=== PATIENT | female | born 1950 | race Caucasian/White ===

== ENCOUNTER 2016-10-10 06:38 | Emergency (ER) | payer OTHER ==
--- NOTE | 2016-10-10 06:51 | PDOC ---
History of Present Illness - History of Present Illness Initial Comments: 10/10/16 06:57 This 66-year-old woman with a history of diabetes mellitus, presents with a history of progressive pain in her left foot. 3 days ago, the patient walked extensively throughout [place] wearing a new pair of shoes. The following morning, the patient noted swelling and pain in the left foot. These symptoms progressed over the next 24 hours with redness and swelling especially severe at the base of the big toe. Patient has no previous history of gout. No history of diabetic foot ulcers. No history of gout in her family. No history of fever or chills. No recent change in diet or increase in alcohol consumption <Heather Boyd - Last Filed: 10/10/16 07:16> <Yemi Bernal - Last Filed: 10/10/16 09:24> - General Chief Complaint: Pain Stated Complaint: PAIN LEFT FOOT Time Seen by Provider: 10/10/16 06:40 Past History - Immunization History Immunization Up to Date: Yes - Psycho/Social/Smoking Cessation Hx Suicidal Ideation: No Smoking History: Former smoker Have you smoked in the past 12 months: No Hx Alcohol Use: No Drug/Substance Use Hx: No <Heather Boyd - Last Filed: 10/10/16 07:16> <Yemi Bernal - Last Filed: 10/10/16 09:24> - Past Medical History Allergies/Adverse Reactions: Allergies Allergy/AdvReac Type Severity Reaction Status Date / Time No Known Allergies Allergy Verified 10/10/16 06:39 Home Medications: Ambulatory Orders Ketorolac Tromethamine [Toradol] 10 mg PO Q6H #12 tablet 10/10/16 Metformin HCl [Metformin HCl ER] 0 mg PO DAILY 10/10/16 Victoza - 10/10/16 Review of Systems - Review of Systems Able to Perform ROS?: Yes Comments:: 12 point review of systems is negative except for what is noted in the history of present illness <Heather Boyd - Last Filed: 10/10/16 07:16> *Physical Exam - Physical Exam Comments: GENERAL: HEAD: Normal with no signs of trauma. EYES: PERRLA, EOMI, sclera anicteric, conjunctiva clear. ENT: Ears normal, nares patent, oropharynx clear without exudates. Dry mucous membranes. NECK: Normal range of motion, supple without lymphadenopathy, JVD, or masses. LUNGS: Breath sounds equal, clear to auscultation bilaterally. No wheezes, and no crackles. HEART:Regular rate and rhythm, normal S1 and S2 without murmur, rub or gallop. ABDOMEN:.normal bowel sounds No guarding,tenderness or rebound.No masses No distention. EXTREMITIES: Left footmarked tenderness/moderate erythema/moderate edema at the base of the great toe and at first MTP joint no ulcers/lacerations or other skin breakage Remainder of the extremity exam is normal NEUROLOGICAL: Cranial nerves II through XII grossly intact. Normal speech. No focal neurological deficits. MUSCULOSKELETAL: Back non-tender to palpation, no CVA tenderness SKIN: Warm, Dry, normal turgor, no rashes or lesions noted. <Heather Boyd - Last Filed: 10/10/16 07:16> - Vital Signs Last Vital Signs Temp Pulse Resp BP Pulse Ox 98.1 F 85 18 152/82 100 10/10/16 06:43 10/10/16 06:43 10/10/16 06:43 10/10/16 06:43 10/10/16 06:43 <Yemi Bernal - Last Filed: 10/10/16 09:24> ED Treatment Course - ADDITIONAL ORDERS Additional order review: Laboratory Results 10/10/16 10/10/16 07:58 07:58 Uric Acid 7.3 H Calcium 10.0 <Yemi Bernal - Last Filed: 10/10/16 09:24> Progress Note - Progress Note Progress Note: This 66-year-old woman presents with a few day history of progressive inflammation and pain in the great toe of her left foot. Although she has had overuse in recent days (extensive walking 3 days ago), clinical presentation/ exam is most consistent with acute gout. Left foot x-ray will be performed to rule out occult fracture. Case signed out to Dr. Young at end of shift <Heather Boyd - Last Filed: 10/10/16 07:16> Medical Decision Making - Medical Decision Making 10/10/16 09:18 Uric Acid is 7.3, elevated. Calcium is 10.0. X-ray is negative The patient is being treated now by her primary physician and snailer for elevated calcium. She has an appointment for later in the week with both physicians. She had stopped her triamterene 2 weeks ago upon the order of her snailer. She is on no diuretics now. She denies alcohol. Recommend short course of anti-inflammatories to quell the attack of gout. She will follow-up with her snailer for further instructions. She is improved and ambulatory following administration of Toradol, discharged in less discomfort in the company of her to follow-up later in the week as <Yemi Bernal - Last Filed: 10/10/16 09:24> *DC/Admit/Observation/Transfer <Heather Boyd - Last Filed: 10/10/16 07:16> - Discharge Dispostion Admit: No <Yemi Bernal - Last Filed: 10/10/16 09:24> Diagnosis at time of Disposition: Gout Qualifiers: Gout site: toe Gout etiology: unspecified cause Laterality: left Chronicity: acute Qualified Code(s): M10.9 - Gout, unspecified - Discharge Dispostion Condition at time of disposition: Stable - Prescriptions Prescriptions: Ketorolac Tromethamine [Toradol] 10 mg PO Q6H #12 tablet - Patient Instructions Printed Discharge Instructions: DI for Gout, Low-Purine Diet Additional Instructions: Take medication only until symptoms improve to minimize the chances of untoward side effects. See your primary physician and your snailer to modify medications. Review with a low purine diet that is enclosed to minimize the chances of recurrent gout.
[2016-10-10 07:00] VITALS: BP 152/82; PULSE 85; TEMP 98.1; BMI 44.9
[2016-10-10] MEDS ORDERED: KETOROLAC TROMETHAMINE 60 MG/2 ML VIAL IM ONE (08:43)
[2016-10-10] MEDS ORDERED: KETOROLAC TROMETHAMINE 60 MG/2 ML VIAL ONE (08:57)
== END 2016-10-10 09:27 | disposition home or self-care (01) ==
LOC: FER 06:38
PROC: 3E0233Z Introduction of Anti-inflammatory into Muscle, Percutaneous Approach (ICD-10-PCS; principal; 2016-10-10)
DX: M10.9 Gout, unspecified (principal); E11.9 Type 2 diabetes mellitus without complications; Z87.891 Personal history of nicotine dependence; Z79.84 Long term (current) use of oral hypoglycemic drugs
CPT/HCPCS: 36415; 73630-TC-LT; 82310; 84550; 99281-25

== ENCOUNTER 2022-05-08 03:43 | Emergency (ER) | payer OTHER ==
[2022-05-08] MEDS ORDERED: dilTIAZem HCL 50 MG/10 ML - 10 ML VIAL ONE (04:06)
[2022-05-08] MEDS ORDERED: METOPROLOL TARTRATE 5 MG/5 ML VIAL IVPUSH ONE ×2 (04:07→04:23)
[2022-05-08] MEDS ORDERED: SODIUM CHLORIDE 0.9% 500 ML INFUS.BAG IV ONE (04:08)
[2022-05-08] MEDS ORDERED: METOPROLOL TARTRATE 5 MG/5 ML VIAL ONE ×2 (04:18→04:24)
[2022-05-08 04:22] VITALS: BMI 45.2
[2022-05-08] MEDS ORDERED: NITROGLYCERIN SUBLINGUAL 1/150 0.4 MG TAB SL ONE (04:23)
[2022-05-08] MEDS ORDERED: NITROGLYCERIN SUBLINGUAL 1/150 0.4 MG TAB ONE (04:24)
[2022-05-08] MEDS ORDERED: ACETAMINOPHEN 1000 MG/100 ML BAG IVPB ONE (04:32)
[2022-05-08] MEDS ORDERED: ACETAMINOPHEN INJECTION 100 ML IVPB ONE (04:35)
[2022-05-08] MEDS ORDERED: MAGNESIUM SULF 50% (8.12 MEQ/2 ML-1 GM VIAL) IVPB ONE ×2 (04:42→05:07)
[2022-05-08] MEDS ORDERED: MAGNESIUM SULFATE IN WATER 2 GM/50 ML IVPB IVPB ONE ×2 (04:46→05:00)
[2022-05-08 05:13] LABS: BASO % 0.8 % (0-2.0); HEMATOCRIT 43.5 % (32.4-45.2); HEMOGLOBIN 14.5 GM/dL (10.7-15.3); LYMPH % 25.8 % (8-40); MCH 32.1 pg (25.7-33.7); MCHC 33.4 g/dl (32.0-36.0); MEAN CELL VOLUME 96.2 fl (80-96); MEAN PLT VOLUME 8.1 fl (7.5-11.1); MONO % 6.5 % (3.8-10.2); NEUT % 65.9 % (42.8-82.8); PLATELET COUNT 340 10^3/uL (134-434); RBC 4.52 M/mm3 (3.60-5.2); RDW 12.9 % (11.6-15.6); WHITE BLOOD COUNT 7.1 K/mm3 (4.0-10.0)
[2022-05-08 05:15] LABS: EPI CELLS 3 /uL (0-25.1); HYALINE CASTS 0 /uL (0-3.1); URINE APPEARANCE CLEAR; URINE BACTERIA 47 /uL (0-1359); URINE BILIRUBIN NEGATIVE (NEGATIVE); URINE COLOR YELLOW; URINE GLUCOSE (UA) 2+ (NEGATIVE); URINE KETONE NEGATIVE (NEGATIVE); URINE LEUK ESTERASE NEGATIVE (NEGATIVE); URINE NITRITE NEGATIVE (NEGATIVE); URINE PROTEIN 2+ (NEGATIVE); URINE RBC 7 /uL (0-23.9); URINE UROBILINOGEN 0.2 mg/dL (0.2-1.0); URINE WBC 1 /uL (0-25.8)
[2022-05-08] MEDS ORDERED: METOPROLOL TARTRATE 50 MG TABLET (FP) PO ONE (05:16)
[2022-05-08] MEDS ORDERED: METOPROLOL TARTRATE 50 MG TABLET (FP) ONE (05:20)
[2022-05-08 05:22] LABS: INR 1.06 (0.83-1.09); PROTHROMBIN TIME (PATIENT) 12.2 SEC (9.7-13.0)
[2022-05-08 05:33] LABS: ALBUMIN 3.7 g/dl (3.4-5.0); CALCIUM 10.3 mg/dL (8.5-10.1)
[2022-05-08 05:34] LABS: BLOOD UREA NITROGEN 25.2 mg/dL (7-18)
[2022-05-08 05:36] LABS: CREATININE 1.3 mg/dL (0.55-1.3)
[2022-05-08] MEDS ORDERED: INSULIN REGULAR HUMAN 100 UNITS/ML *VIAL IVPUSH ONE (05:36)
[2022-05-08 05:38] LABS: BILIRUBIN,TOTAL 0.3 mg/dL (0.2-1)
[2022-05-08] MEDS ORDERED: INSULIN REGULAR HUMAN 100 UNITS/ML *VIAL ONE (05:40)
[2022-05-08] MEDS ORDERED: LORazepam 1 MG TABLET PO ONE (06:54)
[2022-05-08] MEDS ORDERED: LORazepam 0.5 MG TABLET ONE (06:57)
[2022-05-08 08:36] VITALS: TEMP 97.8
[2022-05-08 11:48] VITALS: BP 146/100; PULSE 138; RESP 24
== END 2022-05-08 12:05 | disposition short-term general hospital (02) ==
LOC: FER 03:43
PROC: 3E0333Z Introduction of Anti-inflammatory into Peripheral Vein, Percutaneous Approach (ICD-10-PCS; principal; 2022-05-08)
PROC: 3E013VG Introduction of Insulin into Subcutaneous Tissue, Percutaneous Approach (ICD-10-PCS; 2022-05-08)
PROC: 3E033GC Introduction of Other Therapeutic Substance into Peripheral Vein, Percutaneous Approach (ICD-10-PCS; 2022-05-08)
PROC: 3E033GC Introduction of Other Therapeutic Substance into Peripheral Vein, Percutaneous Approach (ICD-10-PCS; 2022-05-08)
PROC: 3E033GC Introduction of Other Therapeutic Substance into Peripheral Vein, Percutaneous Approach (ICD-10-PCS; 2022-05-08)
DX: I48.0 Paroxysmal atrial fibrillation (principal)
CPT/HCPCS: 36415; 71045-TC-FY; 80053; 81003; 82962; 84484; 85025; 85610; 93005; 99285-25; C9803-CS; U0003; U0005